=== PATIENT | male | born 1970 ===

== ENCOUNTER 2017-01-28 17:15 | Observation (INO) | payer SELFPAY ==
[2017-01-28 17:21] VITALS: BMI 29.2
--- NOTE | 2017-01-28 17:50 | C.PDOC ---
History Of Present Illness Patient is a 44 year old male brought to the ED via BLS for uncooperative behavior with police on scene at shopping [employer] at [place] [address]. Patient appears to be intoxicated, and is not conducive to providing valid personal information. Patient admits to drinking beer today. Otherwise, denies any physical complaints at this time. Pt ambulatory to ED, no apparent distress. Chief Complaint (Nursing): Substance Abuse History Per: Patient History/Exam Limitations: intoxication Onset/Duration Of Symptoms: Gradual Current Symptoms Are (Timing): Still Present Suicide/Self Injury Attempted (Context): None Modifying Factor(s): Alcohol Severity: None Pain Scale Rating Of: 0 Associated Symptoms: denies: Suicidal Thoughts, Suicidal Plan Involuntary Hold By: None Recent travel outside of the [place]: No Additional History Per: EMS Past Medical History Reviewed: Historical Data, Nursing Documentation, Vital Signs Vital Signs: Last Vital Signs Temp 98.5 F 01/28/17 17:19 Pulse 97 H 01/28/17 17:19 Resp 18 01/28/17 17:19 BP 132/76 01/28/17 17:19 Pulse Ox 97 01/28/17 18:57 Family History: States: Unknown Family Hx - Social History Hx Alcohol Use: (Uncooperative) Hx Substance Use: (Uncooperative) - Immunization History Hx Tetanus Toxoid Vaccination: (Uncooperative) Hx Influenza Vaccination: (Uncooperative) Hx Pneumococcal Vaccination: (Uncooperative) Review Of Systems Except As Marked, All Systems Reviewed And Found Negative. Constitutional: Negative for: Fever, Chills Cardiovascular: Negative for: Chest Pain, Palpitations Respiratory: Negative for: Shortness of Breath Gastrointestinal: Negative for: Nausea, Vomiting, Abdominal Pain Skin: Negative for: Rash, Bruising Neurological: Negative for: Headache, Dizziness Psych: Negative for: Suicidal ideation Physical Exam - Physical Exam Appears: Non-toxic, No Acute Distress, Unkempt, Other (EtOH on breath) Skin: Normal Color, Warm, Dry Head: Atraumatic, Normacephalic Eye(s): bilateral: Normal Inspection Oral Mucosa: Moist Neck: Normal ROM, Supple Chest: Symmetrical Extremity: Bilateral: Atraumatic (no signs of injury), Normal ROM Neurological/Psych: Oriented x3 (awake, alert), No Normal Speech (slurred speech ) ED Course And Treatment O2 Sat by Pulse Oximetry: 97 (RA) Pulse Ox Interpretation: Normal ED OBSERVATION Date of observation admission: 01/28/17 Time of observation admission: 17:53 - Observation admission statement Patient is being placed in observation because:: Alcohol intoxication - Goals of Observation Goals of observation are:: Sobriety - Progress Note Progress Note: 01/28/17 17:53 Patient is resting comfortably in bed, no acute distress. 01/28/17 18:47 Pt is resting in bed. No physical complaints at this time. 01/28/17 18:57 Patient is awake, alert, oriented x3. Pt is ambulating well with steady gait. Patient has normal speech, and states he would like to be discharged home. Disposition - Disposition Disposition: HOME/ ROUTINE Disposition Time: 19:00 Condition: IMPROVED - Clinical Impression Clinical Impression: Alcohol intoxication - PA / DRUG ABUSE SOCIAL WORKER / Resident Statement MD/DO has reviewed & agrees with the documentation as recorded. - Scribe Statement The provider has reviewed the documentation as recorded by the Armandoibe Corrina Sparks All medical record entries made by the Armandoibjulian were at my direction and personally dictated by me. I have reviewed the chart and agree that the record accurately reflects my personal performance of the history, physical exam, medical decision making, and the department course for this patient. I have also personally directed, reviewed, and agree with the discharge instructions and disposition.
[2017-01-28 19:04] VITALS: BP 117/76; PULSE 78; RESP 16; TEMP 97.9; O2SAT 100
== END 2017-01-28 18:58 | disposition home or self-care (01) ==
LOC: C.ER 17:15 → C.9OBSV 18:31
PROVIDERS: ADMIT Emergency Medicine; ATTEND Emergency Medicine
DX: F10.129 Alcohol abuse with intoxication, unspecified (principal); Y90.9 Presence of alcohol in blood, level not specified